=== PATIENT | female | born 1975 | race Caucasian/White ===

== ENCOUNTER 2019-12-25 05:45 | Day surgery (SDC) | payer OTHER ==
[~2019-12-25] VITALS: Ht 154.9 cm; Wt 80.0 kg
[~2019-12-25 05:45] MED LIST: AMLO5TAB66 PO; ASPI-1111 PO; ESTR1PAT73 TD; METO-408 PO; NITR0.4T52 SL; SODIUM CHLORIDE 0.9% 1,000 ML ONE; TRAM50TA4 PO
[2019-12-25] MEDS ORDERED: SODIUM CHLORIDE 0.9% 1,000 ML IV ONE (06:00)
[2019-12-25] MEDS ORDERED: HEPARIN SODIUM,PORCINE 1,000 UNITS/ML 10 ML VIAL ONE (08:02)
[2019-12-25] MEDS ORDERED: LIDOCAINE/PF 1% 30 ML VIAL ONE (08:02)
[2019-12-25] MEDS ORDERED: VERAPAMIL HCL 2.5 MG/ML 2 ML VIAL ONE (08:02)
[2019-12-25] MEDS ORDERED: HEPARIN SODIUM 1000 UNITS/NS 1,000 ML ONE (08:03)
[2019-12-25] MEDS ORDERED: HEPARIN SODIUM 1000 UNITS/NS 1,000 ML IARTER ONE (08:24)
[2019-12-25] MEDS ORDERED: SODIUM CHLORIDE 0.9% 500 ML IV ONE (08:24)
[2019-12-25] MEDS ORDERED: IOHEXOL 300 MG/ML 150 ML VIAL ICOR ONE (08:30)
[2019-12-25] MEDS ORDERED: LIDOCAINE 1% 30 ML/SOD BICARB 8.4% 4 ML SQ ONE (08:30)
[2019-12-25] MEDS ORDERED: MIDAZOLAM HCL 2 MG/2 ML VIAL IVP ONE ×4 (08:45→11:15)
[2019-12-25] MEDS ORDERED: FentaNYL CITRATE-PF 100 MCG/2 ML VIAL IVP ONE ×4 (08:45→10:45)
[2019-12-25] MEDS ORDERED: MIDAZOLAM HCL 2 MG/2 ML VIAL ONE ×2 (09:04→09:05)
[2019-12-25] MEDS ORDERED: FentaNYL CITRATE-PF 100 MCG/2 ML VIAL ONE (09:04)
[2019-12-25] MEDS ORDERED: VERAPAMIL HCL 2.5 MG/ML 2 ML VIAL IARTER ONE (09:30)
[2019-12-25] MEDS ORDERED: NITROGLYCERIN/D5W 50 MG/250 ML IV BOTTLE IARTER ONE ×2 (09:30→09:45)
[2019-12-25] MEDS ORDERED: IOHEXOL 300 MG/ML 150 ML VIAL ONE (09:32)
[2019-12-25 09:48] VITALS: BP 97/62
[2019-12-25] MEDS ORDERED: OxyCODONE HCL/ACETAMINOPHEN 5-325 MG TABLET PO PRN (10:00)
[2019-12-25] MEDS ORDERED: SODIUM CHLORIDE 0.9% 1,000 ML IV SCH (10:00)
[2019-12-25 10:36] VITALS: BP 123/70
[2019-12-25] MEDS ORDERED: OxyCODONE HCL/ACETAMINOPHEN 5-325 MG TABLET ONE (10:53)
== END 2019-12-25 14:05 | disposition home or self-care (01) ==
LOC: CATHLAB 05:45
PROVIDERS: ATTEND Internal Medicine Cardiovascular Disease
DX: R94.39 Abnormal result of other cardiovascular function study (principal); R07.9 Chest pain, unspecified; I10 Essential (primary) hypertension; F17.210 Nicotine dependence, cigarettes, uncomplicated; Z79.899 Other long term (current) drug therapy; E78.2 Mixed hyperlipidemia; E66.09 Other obesity due to excess calories; Z88.8 Allergy status to other drugs, medicaments and biological substances; Z98.51 Tubal ligation status; Z90.710 Acquired absence of both cervix and uterus; Z98.890 Other specified postprocedural states; Z82.49 Family history of ischemic heart disease and other diseases of the circulatory system; Z68.33 Body mass index [BMI] 33.0-33.9, adult; Z11.59 Encounter for screening for other viral diseases
CPT/HCPCS: 87635; 93005; 93458; 99152; 99153; C1769; C1894; J1644 ×2; J2250; J3010; J3490 ×2; J7030; Q9967